=== PATIENT | male | born 1965 ===

== ENCOUNTER 2017-03-16 09:44 | Emergency (ER) | payer SELFPAY ==
[2017-03-16 09:58] VITALS: RESP 18
--- NOTE | 2017-03-16 10:17 | C.PDOC ---
History Of Present Illness 66 year old male brought to ED via EMS for alcohol intoxication. Denies SI, HI, or any active physical complaints at this time. Time Seen by Provider: 03/16/17 09:56 Chief Complaint (Nursing): Substance Abuse History Per: Patient History/Exam Limitations: no limitations Onset/Duration Of Symptoms: Gradual Current Symptoms Are (Timing): Still Present Modifying Factor(s): Alcohol Severity: None Pain Scale Rating Of: 0 Associated Symptoms: denies: Suicidal Thoughts, Suicidal Plan Involuntary Hold By: None Recent travel outside of the [place]: No Additional History Per: EMS Past Medical History Reviewed: Historical Data, Nursing Documentation, Vital Signs Vital Signs: Last Vital Signs Temp 98.6 F 03/16/17 13:13 Pulse 86 03/16/17 13:13 Resp 18 03/16/17 13:13 BP 158/78 H 03/16/17 13:13 Pulse Ox 95 03/16/17 14:15 Family History: States: Unknown Family Hx - Social History Hx Alcohol Use: Yes Hx Substance Use: No Review Of Systems Except As Marked, All Systems Reviewed And Found Negative. Constitutional: Negative for: Fever, Chills Cardiovascular: Negative for: Chest Pain, Palpitations Respiratory: Negative for: Cough, Shortness of Breath Gastrointestinal: Negative for: Nausea, Vomiting, Abdominal Pain Neurological: Negative for: Headache, Dizziness Psych: Negative for: Suicidal ideation Physical Exam - Physical Exam Appears: No Acute Distress, Unkempt, Other (AOB) Skin: Normal Color, Warm, Dry Head: Atraumatic, Normacephalic Eye(s): bilateral: Normal Inspection Oral Mucosa: Moist, Other (EtOH on breath) Neck: Normal ROM, Supple Cardiovascular: Rhythm Regular Respiratory: Normal Breath Sounds (clear ) Extremity: Bilateral: Atraumatic, Normal ROM Neurological/Psych: Eyes Open With Command, Slow To Respond With Command Disoriented To: Time, Situation ED Course And Treatment O2 Sat by Pulse Oximetry: 95 (RA) Pulse Ox Interpretation: Normal Medical Decision Making Medical Decision Making: Impression: alcohol intoxication Blood sugar finger stick Plan is to observe in ED pending sobriety patient is sleeping in no distress, responds to verbal stimuli 1400 Patient is alert and oriented, asking to leave. He is ambulating with steady gait. Patient stable for discharge Disposition Counseled Patient/Family Regarding: Diagnosis, Need For Followup - Disposition Disposition: HOME/ ROUTINE Disposition Time: 14:14 Condition: STABLE Instructions: Alcohol Intoxication (DC) Forms: [employer] - Share Your Passion! Connect (Mongolian) - POA Present On Arrival: None - Clinical Impression Clinical Impression: Intoxication - PA / [facility] / Resident Statement MD/DO has reviewed & agrees with the documentation as recorded. - Scribe Statement The provider has reviewed the documentation as recorded by the Scribe [place] All medical record entries made by the Scribe were at my direction and personally dictated by me. I have reviewed the chart and agree that the record accurately reflects my personal performance of the history, physical exam, medical decision making, and the department course for this patient. I have also personally directed, reviewed, and agree with the discharge instructions and disposition.
[2017-03-16 13:14] VITALS: BP 158/78; PULSE 86; TEMP 98.6
[2017-03-16 14:15] VITALS: O2SAT 95
== END 2017-03-16 14:22 | disposition home or self-care (01) ==
LOC: C.ER 09:44 → EDBD 09:44 → C.ER 14:22
DX: F10.129 Alcohol abuse with intoxication, unspecified (principal)